=== PATIENT | female | born 1995 | race African-American/Black ===

== ENCOUNTER 2018-01-03 12:31 | Emergency (ER) | payer OTHER ==
[2018-01-03 12:46] VITALS: BMI 25.6
--- NOTE | 2018-01-03 13:37 | PDOC ---
History of Present Illness - General Chief Complaint: Lightheaded Stated Complaint: LITE HEADED, DIZZINESS Time Seen by Provider: 01/03/18 12:45 - History of Present Illness Initial Comments: 01/03/18 13:34 22 yo F is here 20 weeks with the chief complaint of feeling lightheaded this morning and has a headache. She says she felt dizzy and she wanted to pass out. She also endorses a headache and says she had blurry vision. This happened to her 1 month ago in October, she did not see a doc for it. Denies room spinning. ROS: She said yesterday she had a sharp substernal chest pain which lasted for an hour then went away. It happened while she was watching TV. Past History - Past Medical History Allergies/Adverse Reactions: Allergies Allergy/AdvReac Type Severity Reaction Status Date / Time No Known Allergies Allergy Verified 04/24/17 20:39 Home Medications: Ambulatory Orders NK [No Known Home Medication] 04/24/17 Anemia: Yes Asthma: Yes COPD: No - Reproductive History Therapeutic (s) & number: No - Suicide/Smoking/Psychosocial Hx Smoking History: Unknown if ever smoked Review of Systems - Review of Systems Comments:: 01/03/18 14:38 CONSTITUTIONAL: Absent: fever, chills, diaphoresis, generalized weakness, malaise, loss of appetite HEENT: Absent: rhinorrhea, nasal congestion, throat pain, throat swelling, difficulty swallowing, mouth swelling, ear pain, eye pain, visual Changes CARDIOVASCULAR: Positive: Chest pain yesterday for 1 hour, lightheadedness Absent: syncope, palpitations, irregular heart rate, peripheral edema RESPIRATORY: Absent: cough, shortness of breath, dyspnea with exertion, orthopnea, wheezing, stridor, hemoptysis GASTROINTESTINAL: Absent: abdominal pain, abdominal distension, nausea, vomiting, diarrhea, constipation, melena, hematochezia GENITOURINARY: Absent: dysuria, frequency, urgency, hesitancy, hematuria, flank pain, genital pain MUSCULOSKELETAL: Absent: myalgia, arthralgia, joint swelling SKIN: Absent: rash, itching, pallor HEMATOLOGIC/IMMUNOLOGIC: Absent: easy bleeding, easy bruising, lymphadenopathy, frequent infections ENDOCRINE: Absent: unexplained weight gain, unexplained weight loss, heat intolerance, cold intolerance NEUROLOGIC: Positive: headache, blurry vision, dizziness Absent: focal weakness or paresthesias, unsteady gait, seizure, mental status changes, bladder or bowel incontinence PSYCHIATRIC: Absent: anxiety, depression, suicidal or homicidal ideation, hallucinations. *Physical Exam - Vital Signs Last Vital Signs Temp Pulse Resp BP Pulse Ox 97.3 F L 78 18 105/68 100 01/03/18 12:43 01/03/18 12:43 01/03/18 12:43 01/03/18 12:43 01/03/18 12:43 - Physical Exam Comments: 01/03/18 14:39 GENERAL: Well developed, well nourished. Awake and alert. No acute distress. HEENT: Normocephalic, atraumatic. PERRLA, EOMI. No conjunctival pallor. Sclera are non- icteric. Moist mucous membranes. Oropharynx is clear. NECK: Supple. Full ROM. No JVD. Carotid pulses 2+ and symmetric, without bruits. No thyromegaly. No lymphadenopathy. CARDIOVASCULAR: Regular rate and rhythm. No murmurs, rubs, or gallops. Distal pulses are 2+ and symmetric. PULMONARY: No evidence of respiratory distress. Lungs clear to auscultation bilaterally. No wheezing, rales or rhonchi. ABDOMINAL: Soft. Non-tender. Non-distended. No rebound or guarding. No organomegaly. MUSCULOSKELETAL Normal range of motion at all joints. No bony deformities or tenderness. No CVA tenderness. EXTREMITIES: No cyanosis. No clubbing. No edema. No calf tenderness. SKIN: Warm and dry. Normal capillary refill. No rashes. No jaundice. NEUROLOGICAL: Alert, awake, appropriate. Cranial nerves 2-12 intact. No deficits to light touch and temperature in face, upper extremities and lower extremities. No motor deficits in the in face, upper extremities and lower extremities. Normoreflexic in the upper and lower extremities. Normal speech. Toes are down-going bilaterally. Gait is normal without ataxia. PSYCHIATRIC: Cooperative. Good eye contact. Appropriate mood and affect. Heart Score/ECG Review - Electrocardiogram EKG: Normal - Age Age: </= 45 - Risk Factors Based on the list above the patient has:: No risk factors known - Troponin Troponin: </= normal limit - ECG Intrepretation Rhythm: Regular Rhythm - [place]: Normal - P and CT Delta Wave(s) Present: No WPW: No - QRS Poor R Wave Progression: No Q Wave Present: No - ST and T Early Repolarization: No Non Specific ST-T Wave changes: No Flattened T Waves: No Prolonged Q-T Interval: No - ECG Impressions Normal ECG: Yes Non-specific ST Elevation: No Ischemic Changes: No Bradycardia: No Torsades kaley Pointes: No WPW: No ED Treatment Course - LABORATORY CBC & Chemistry Diagram: 01/03/18 14:20 01/03/18 14:20 Medical Decision Making - Medical Decision Making 01/03/18 14:40 22 yo F 20 weeks here with lightheadedness, headache, and blurry vision. Top on the differential is a migraine We will get an ekg to ass for any rhythym disturbances or abnormalities. Also going to get bloodwork to check Hb and electrolytes. Plan: snellen visual acuity and orthostatic test. Snellen: 20:15OD, 20:20 OS after a liter of normal saline the patient no longer has a headache and no longer has blurry vision. She is eating wings and fries and feels great. DCing her w Neuro FU. 01/03/18 14:52 01/03/18 15:39 *DC/Admit/Observation/Transfer Diagnosis at time of Disposition: Headache - Discharge Dispostion Condition at time of disposition: Improved Decision to Admit order: No - Referrals Referrals: Giovani Ruffin MD [Staff Physician] - - Patient Instructions Printed Discharge Instructions: DI for Headache Additional Instructions: Please call the neurologist we are referring you to and schedule an appointment with him in the next 5 days. Come back to the ER if your symptoms worsen, you develop fever or anything concerning. Take Tylenol if you get a headache and need pain relief. - Post Discharge Activity
[2018-01-03] MEDS ORDERED: SODIUM CHLORIDE 1,000 ML IV STA (13:59)
[2018-01-03 14:25] LABS: BASO % 0.6 % (0-2.0); EOS % 2.4 % (0-4.5); HEMATOCRIT 32.7 % (32.4-45.2); HEMOGLOBIN 10.7 GM/dL (10.7-15.3); LYMPH % 18.6 % (8-40); MCH 25.5 pg (25.7-33.7); MCHC 32.8 g/dl (32.0-36.0); MEAN CELL VOLUME 77.7 fl (80-96); MEAN PLT VOLUME 8.5 fl (7.5-11.1); MONO % 5.2 % (3.8-10.2); NEUT % 73.2 % (42.8-82.8); PLATELET COUNT 272 K/MM3 (134-434); RDW 14.6 % (11.6-15.6); WHITE BLOOD COUNT 7.9 K/mm3 (4.0-10.0)
[2018-01-03 14:51] LABS: ALBUMIN 3.3 g/dl (3.4-5.0); ANION GAP 5 (8-16); BILIRUBIN,TOTAL 0.3 mg/dL (0.2-1.0); BLOOD UREA NITROGEN 10 mg/dL (7-18); CALCIUM 9.2 mg/dL (8.5-10.1); CHLORIDE 103 mmol/L (98-107); CO2 28 mmol/L (21-32); CREATININE 0.8 mg/dL (0.55-1.02); GLUCOSE,RANDOM 83 mg/dL (74-106); POTASSIUM 4.1 mmol/L (3.5-5.1); SGOT/AST 31 U/L (15-37); SGPT/ALT 33 U/L (12-78); SODIUM 136 mmol/L (136-145); TOT PROT 7.5 g/dl (6.4-8.2)
[2018-01-03 14:52] LABS: ALK PHOS 84 U/L (45-117)
--- NOTE | 2018-01-03 15:38 | PDOC ---
Attending Attestation - Medical Decision Making 01/03/18 16:55 Documentation prepared by Kallie Valles, acting as medical information specialist for Aleksander Esquivel MD. <Kallie Valles - Last Filed: 01/03/18 16:55> - Resident Resident Name: Shaun Rojas - ED Attending Attestation I have performed the following: I have examined & evaluated the patient, The case was reviewed & discussed with the resident, I agree w/resident's findings & plan, Exceptions are as noted - HPI HPI: 01/03/18 15:38 The patient is a 22 year old female, with a significant past medical history of anemia, asthma, chronic headaches, who presents 20 weeks () to the emergency department complaining of lightheadedness since this morning. The patient states that she began experiencing non-room spinning dizziness, gradual onset R sided headache, and blurry vision while walking outside this morning. Symptoms lasted for a few mins, and pt was concerned she would pass out and presented to the ED for further evaluation. She notes that before the event she had a soda and not much water. She notes this headache is similar to her previous headaches which are often associated with blurry vision. The patient also reports that yesterday she experienced a sharp sternal non radation chest pain that lasted 1 hour while she was sitting down watching TV. CP resolved on its own. She currently endorses mild b/l back pain for 1 month. Other than the back pain, pt states that all other symptoms at this time have resolved The patient visited her [facility] yesterday; US of was reported normal Denies pelvic pain or vaginal bleeding Denies chest pain, shortness of breath. Denies fevers, chills, nausea, vomiting, diarrhea, and constipation. Denies dysuria, frequency, urgency, and hematuria. Allergies: NKA Past surgical history: none reported Social history: No reported cigarette, alcohol, or drug use. PCP: Dr. Sandy Zhang - Physicial Exam PE: 01/03/18 15:43 GENERAL: Awake, alert, and fully oriented, in no acute distress HEAD: No signs of trauma EYES: PERRLA, EOMI, sclera anicteric, conjunctiva clear. 20/20 OU, VF are full ENT: Auricles normal inspection, hearing grossly normal, nares patent, oropharynx clear without exudates. (+)Moderately dry mucosa NECK: Normal ROM, supple, no lymphadenopathy, JVD, or masses LUNGS: Breath sounds equal, clear to auscultation bilaterally. No wheezes, and no crackles HEART: Regular rate and rhythm, normal S1 and S2, no murmurs, rubs or gallops ABDOMEN: Soft, nontender, normoactive bowel sounds. No guarding, no rebound. No masses. gravid uterus EXTREMITIES: Normal range of motion, no edema. No clubbing or cyanosis. No cords , erythema, or tenderness BACK: No midline spinal tenderness in cervical/thoracic/lumbar region. +lumbar paraspinal ttp b/l NEUROLOGICAL: Normal speech, cranial nerves intact, negative pronator drift, 5/ 5 strength in all 4 extremities, normal sensation to light touch in all 4 extremities, normal cerebellar exam, normal gait, normal reflexes and tone SKIN: Warm, Dry, normal turgor, no rashes or lesions noted." - Medical Decision Making 01/03/18 15:28 22yo F currently 20 weeks presents to the ED with lightheadness, headache, blurry vision today, and CP yesterday. On my evaluation, all sxs have resolved after IVF. Vitals wnl. PT ambulating in ED with no lightheadness. Exam , including visual acuity 20/20 OU corrected. Visual sandy full. Pt reports her headache similar to previous headaches over the last 4 years, which are often associated with blurry vision, possibly atypical migraine? Given normal exam and resolution of sxs, no need for further work up at this time. With regards to lightheadness, pt feels better, ambulating with no difficulty. Admits to not drinking any water today, only a soda. Pt's mucous membranes also appeared dry consistent with dehydration. CP was transient yesterday, likely atypical in nature, trop and EKG wnl. Pt requests DC. Pt stable for transfer to L&D for monitoring <Nassef,Yomna - Last Filed: 01/03/18 19:35> Heart Score/ECG Review #1 01/03/18 19:35 Twelve-lead EKG was performed and reviewed by me. Normal sinus rhythm, rate 70 to. Normal axis and intervals. No ST elevations <Nassef,Yomna - Last Filed: 01/03/18 19:35>
--- NOTE | 2018-01-03 16:33 | EKG ---
Test Reason : Blood Pressure : / mmHG Vent. Rate : 072 BPM Atrial Rate : 072 BPM P-R Int : 152 ms QRS Dur : 074 ms QT Int : 378 ms P-R-T Axes : 041 037 038 degrees QTc Int : 413 ms NORMAL SINUS RHYTHM ANTERIOR INFARCT , AGE UNDETERMINED ABNORMAL ECG NO PREVIOUS ECGS AVAILABLE Confirmed by BASIL TREJO, SKYLAR ([id number]) on 01/03/2018 4:32:57 PM Referred By: Confirmed By:SKYLAR GRACIA MD
[2018-01-03 18:33] VITALS: BP 112/54; PULSE 58; TEMP 97.8
== END 2018-01-03 18:38 | disposition home or self-care (01) ==
LOC: JER 12:31
PROC: 4A07X0Z Measurement of Visual Acuity, External Approach (ICD-10-PCS; principal; 2018-01-03)
PROC: 3E0337Z Introduction of Electrolytic and Water Balance Substance into Peripheral Vein, Percutaneous Approach (ICD-10-PCS; 2018-01-03)
DX: O26.892 Other specified pregnancy related conditions, second trimester (principal); R51 Headache; H53.8 Other visual disturbances; Z3A.20 20 weeks gestation of pregnancy; Z86.2 Personal history of diseases of the blood and blood-forming organs and certain disorders involving the immune mechanism; Z87.09 Personal history of other diseases of the respiratory system
CPT/HCPCS: 36415; 80053; 84484; 85025; 93005; 93010; 99282-25; J7030

== ENCOUNTER 2020-04-02 15:04 | Emergency (ER) | payer OTHER ==
[2020-04-02 15:26] VITALS: BP 126/57; PULSE 85; TEMP 98.6; BMI 15.9
--- OUTSIDE RECORDS SUMMARY | 2020-04-02 15:48 | XMS ---
:1995 Author Organization [facility] Care Team Providers Name Role Phone ED STAFF PHYSICIANMALCOM Unavailable Unavailable ED STAFF PHYSICIAN, STAFF Unavailable Unavailable ED STAFF PHYSICIAN Unavailable Unavailable Re-disclosure Warning The records that you are about to access may contain information from federally- assisted alcohol or drug abuse programs. If such information is present, then the following federally mandated warning applies: This information has been disclosed to you from records protected by federal confidentiality rules (42 CFR part 2). The federal rules prohibit you from making any further disclosure of this information unless further disclosure is expressly permitted by the written consent of the person to whom it pertains or as otherwise permitted by 42 CFR part 2. A general authorization for the release of medical or other information is NOT sufficient for this purpose. The Federal rules restrict any use of the information to criminally investigate or prosecute any alcohol or drug abuse patient.The records that you are about to access may contain highly sensitive health information, the redisclosure of which is protected by Article 27-F of the [facility] Public Health law. If you continue you may haveaccess to information: Regarding HIV / AIDS; Provided by facilities licensed or operated by the [facility] Office of Mental Health; or Provided by the [facility] Office for People With Developmental Disabilities. If such information is present, then the following [facility] mandated warning applies: This information has been disclosed to you from confidential records which are protected by state law. State law prohibits you from making any further disclosure of this information without the specific written consent of the person to whom it pertains, or as otherwise permitted by law. Any unauthorized further disclosure in violation of state law may result in a fine or snf sentence or both. A general authorization for the release of medical or other information is NOT sufficient authorization for further disclosure. Family History Family Member Family Member Family Member Date of Description Data Source(s) Name Gender Status Status Unknown Male Diagnosis 03/21/2016 NEXTGEN ([facility] 12:00:00 AM [facility] EDT Center) Encounters Encounter Providers Location Date Indications Data Source(s ) Emergency Attender: MALCOM ED H 12/30/2019 eLticia Colin STAFF 02:00:00 PM EDT Medical C enter PHYSICIANAttender: - 12/30/2019 ED STAFF 10:02:00 PM EDT PHYSICIANAttender: STAFF ED STAFF PHYSICIANAdmitter: MALCOM ED STAFF PHYSICIAN Patient discharged. Emergency Attender: STAFF ED STAFF H 07/08/2019 08:10:00 PM [facility] PHYSICIAN EST - 07/09/2019 01:45:00 Center AM EST Patient discharged. Emergency H 02/11/2019 05:19:00 PM EDT - 019 [facility] 06:38:00 PM EDT Patient discharged. Insurance Providers Payer name Policy type Policy ID Covered Covered constitution party's Policy P marianne / Coverage constitution party ID relationship to Prasad Inf ormation type prasad AFFINITY [id number] SP [id number] AFFINITY O [id number] 01 [id number] HEALTH PLAN AFFINITY O [id number] 01 [id number] HEALTH PLAN Problems, Conditions, and Diagnoses Code Display Name Description Problem Type Effective Data Sour ce(s) Dates J45.909 Unspecified UNSPECIFIED Diagnosis 12/30/2019 [facility] bucio asthma, ASTHMA, 02:00:00 PM Medical Cente r uncomplicated UNCOMPLICATED EDT N39.0 Urinary tract URINARY TRACT Diagnosis 12/30/2019 [facility] mancera infection, site INFECTION, SITE 02:00:00 PM Med ical Center not specified NOT SPECIFIED EDT R50.9 Fever, unspecified FEVER, UNSPECIFIED Diagnosis 0 [facility] 02:00:00 PM Medical Cente r EDT Z3A.00 Weeks of gestation WEEKS OF GESTATION Diagnosis 9 [facility] of not OF NOT 05:19:00 PM edical Center specified SPECIFIED EDT Z34.90 Encounter for ENCNTR FOR SUPRVSN Diagnosis 02/11/2019 To Colin supervision of OF NORMAL 05:19:00 PM Medical C enter normal , , UNSP, EDT unspecified, UNSP TRIMESTER unspecified trimester Z32.00 Encounter for ENCOUNTER FOR Diagnosis 02/11/2019 [facility] test, TEST, 05:19:00 PM Med ical Center result unknown RESULT UNKNOWN EDT Results ID Date Data Source Liver 12/30/2019 04:35:00 PM EDT [facility] Profile.[id number] Name Value Range Interpretation Description Data Sup porting Code Source(s) Document(s ) Alanine 7-30 <content [facility] aminotransferase styleCode="Bold"> Christos hs [Enzymatic Alanine Medical activity/volume] Aminotransferase Center in Serum or Plasma (ALT) </content>17 IU/L<content styleCode="Italic s"> (7-30 IU/L)</content> Alkaline 38-126 <content [facility] phosphatase styleCode="Bold"> [place] [Enzymatic Alkaline Medical activity/volume] Phosphatase (ALP) Cente r in Serum or Plasma </content>119 IU/L<content styleCode="Italic s"> (38-126 IU/L)</content> Aspartate 14-36 <content [facility] aminotransferase styleCode="Bold"> Christos hs [Enzymatic Aspartate Medical activity/volume] Aminotransferase Center in Serum or Plasma (AST) </content>23 IU/L<content styleCode="Italic s"> (14-36 IU/L)</content> Bilirubin.total 0.2-1.3 Above high <content [facility] [Mass/volume] in normal styleCode="Bold"> Christos hs Serum or Plasma Bilirubin Total Medical </content>1.4 Center MG/DL H<content styleCode="Italic s"> (0.2-1.3 MG/DL)</content> Albumin 3.5-5.0 <content [facility] [Mass/volume] in styleCode="Bold"> Christos hs Serum or Plasma Albumin Medical </content>4.5 Center G/DL<content styleCode="Italic s"> (3.5-5.0 G/DL)</content> UNK 0.0-0.3 <content [facility] styleCode="Bold"> [place] Bilirubin, Direct Medical </content>< 0.2 Center MG/DL<content styleCode="Italic s"> (0.0-0.3 MG/DL)</content> ID Date Data Source HematologyRou.[id number] 12/30/2019 04:35:00 PM EDT To nt [facility] 0400 Name Value Range Interpretation Description Data Sup porting Code Source(s) Document(s ) Leukocytes 4.4-11.0 Above high <content [facility] [#/volume] in normal styleCode="Bold [place] Blood by ">White Blood Medical Automated count Cell Count Center </content>15.25 KCUMM H<content styleCode="Ital ics"> (4.4-11.0 KCUMM)</content > Erythrocytes 4.0-5.1 <content [facility] [#/volume] in styleCode="Bold [place] Blood by ">Red Blood Medical Automated count Cell Count Center </content>4.84 MCUMM<content styleCode="Ital ics"> (4.0-5.1 MCUMM)</content > Hematocrit 36.0-46. Below low normal <content Saint [Volume 0 styleCode="Bold [place] Fraction] of ">Hematocrit Medical Blood by </content>35.6 Center Automated count % L<content styleCode="Ital ics"> (36.0-46.0 %)</content> Hemoglobin 12.3-16. Below low normal <content [facility] [Mass/volume] in 0 styleCode="Bold [place] Blood ">Hemoglobin Medical </content>10.6 Center G/DL L<content styleCode="Ital ics"> (12.3-16.0 G/DL)</content> Erythrocyte mean 26.0-34. Below low normal <content [facility] corpuscular 0 styleCode="Bold [place] hemoglobin ">Mean Medical [Entitic mass] Corposcular Center by Automated Hemoglobin count </content>21.9 PG L<content styleCode="Ital ics"> (26.0-34.0 PG)</content> Erythrocyte mean 80.0-100 <content [facility] corpuscular .0 styleCode="Bold [place] volume [Entitic ">Mean Medical volume] by Corpuscular Center Automated count Volume </content>73.6 FL<content styleCode="Ital ics"> (80.0-100.0 FL)</content> Erythrocyte mean 32.0-37. Below low normal <content [facility] corpuscular 0 styleCode="Bold [place] hemoglobin ">Mean Corpus. Medical concentration Hgb Center [Mass/volume] by Concentration Automated count (MCHC) </content>29.8 G/DL L<content styleCode="Ital ics"> (32.0-37.0 G/DL)</content> Erythrocyte 11.5-14. Above high <content [facility] distribution 5 normal styleCode="Bold [place] width [Ratio] by ">Red Cell Medical Automated count Distribution Center Width </content>19.6 % H<content styleCode="Ital ics"> (11.5-14.5 %)</content> Platelets 130-400 <content Saint [#/volume] in styleCode="Bold [place] Blood by ">Platelet Medical Automated count Count Center </content>329 KCUMM<content styleCode="Ital ics"> (130-400 KCUMM)</content > UNK 0 <content Saint styleCode="Bold [place] ">Nucleated Red Medical Blood Cell Center </content>0.0 /100<content styleCode="Ital ics"> (0 /100)</content> UNK 0.0 <content Saint styleCode="Bold [place] ">Nucleated Red Medical Blood Cell Center Count </content>0.00 KCUMM<content styleCode="Ital ics"> (0.0 KCUMM)</content > Platelet mean 8.0-11.0 <content [facility] volume [Entitic styleCode="Bold [place] volume] in Blood ">Mean Platelet Medical by Automated Volume Center count </content>10.4 FL<content styleCode="Ital ics"> (8.0-11.0 FL)</content> ID Date Data Source GFR(Creatinine).[id number] 12/30/2019 04:35:00 PM EDT [facility] 0-0400 Name Value Range Interpretation Code Description Data Martina rce(s) Supporting Document(s ) UNK > 60 <content [facility] styleCode="Bold"> Medical Cent er EGFR </content>79 GFR<content styleCode="Italic s"> (> 60 GFR)</content> ID Date Data Source CHMROUTINECCDA.[id number] 12/30/2019 04:35:00 PM EDT [facility] -0400 Name Value Range Interpretation Description Data Sup porting Code Source(s) Document(s ) Lipase 23-300 <content [facility] [Enzymatic styleCode="Bold Medical activity/vo ">Lipase Center lume] in </content>26 Serum or IU/L<content Plasma styleCode="Ital ics"> (23-300 IU/L)</content> UNK 30-110 <content [facility] styleCode="Bold Medical ">Amylase Center </content>45 IU/L<content styleCode="Ital ics"> (30-110 IU/L)</content> ID Date Data Source [facility].[id number] 12/30/2019 04:35:00 PM EDT [facility] Name Value Range Interpretation Description Data Sup porting Code Source(s) Document(s ) Sodium 137-145 Below low <content [facility] [Moles/volume] in normal styleCode="Bold"> Meet phs Serum or Plasma Sodium Medical </content>136 Center MEQ/L L<content styleCode="Italic s"> (137-145 MEQ/L)</content> Carbon dioxide, 22-30 <content [facility] total styleCode="Bold"> [place] [Moles/volume] in Carbon Dioxide Medical Serum or Plasma </content>24 Center MEQ/L<content styleCode="Italic s"> (22-30 MEQ/L)</content> Potassium 3.5-5.3 <content [facility] [Moles/volume] in styleCode="Bold"> Meet phs Serum or Plasma Potassium Medical </content>3.8 Center MEQ/L<content styleCode="Italic s"> (3.5-5.3 MEQ/L)</content> Chloride 98-107 <content [facility] [Moles/volume] in styleCode="Bold"> Meet phs Serum or Plasma Chloride Medical </content>99 Center MEQ/L<content styleCode="Italic s"> (98-107 MEQ/L)</content> UNK 7-17 <content [facility] styleCode="Bold"> [place] BUN </content>12 Medical MG/DL<content Center styleCode="Italic s"> (7-17 MG/DL)</content> Glucose 74-106 Above high <content [facility] [Mass/volume] in normal styleCode="Bold"> Christos hs Serum or Plasma Glucose Medical </content>109 Center MG/DL H<content styleCode="Italic s"> (74-106 MG/DL)</content> Creatinine 0.5-1.3 <content [facility] [Mass/volume] in styleCode="Bold"> Christos hs Serum or Plasma Creatinine Medical </content>1.1 Center MG/DL<content styleCode="Italic s"> (0.5-1.3 MG/DL)</content> Calcium 8.4-10. <content [facility] [Mass/volume] in 2 styleCode="Bold"> Christos hs Serum or Plasma Calcium Medical </content>9.2 Center MG/DL<content styleCode="Italic s"> (8.4-10.2 MG/DL)</content> UNK > 60 <content [facility] styleCode="Bold"> [place] EGFR </content>79 Medical GFR<content Center styleCode="Italic s"> (> 60 GFR)</content> Aspartate 14-36 <content [facility] aminotransferase styleCode="Bold"> Christos hs [Enzymatic Aspartate Medical activity/volume] Aminotransferase Center in Serum or Plasma (AST) </content>23 IU/L<content styleCode="Italic s"> (14-36 IU/L)</content> Alanine 7-30 <content [facility] aminotransferase styleCode="Bold"> Christos hs [Enzymatic Alanine Medical activity/volume] Aminotransferase Center in Serum or Plasma (ALT) </content>17 IU/L<content styleCode="Italic s"> (7-30 IU/L)</content> Albumin 3.5-5.0 <content [facility] [Mass/volume] in styleCode="Bold"> Christos hs Serum or Plasma Albumin Medical </content>4.5 Center G/DL<content styleCode="Italic s"> (3.5-5.0 G/DL)</content> Alkaline 38-126 <content [facility] phosphatase styleCode="Bold"> [place] [Enzymatic Alkaline Medical activity/volume] Phosphatase (ALP) Cente r in Serum or Plasma </content>119 IU/L<content styleCode="Italic s"> (38-126 IU/L)</content> Bilirubin.total 0.2-1.3 Above high <content [facility] [Mass/volume] in normal styleCode="Bold"> Christos hs Serum or Plasma Bilirubin Total Medical </content>1.4 Center MG/DL H<content styleCode="Italic s"> (0.2-1.3 MG/DL)</content> ID Date Data Source Urinalysis.[id number] 12/30/2019 02:30:00 PM EDT To [facility] 0 Name Value Range Interpretation Description Data Sup porting Code Source(s) Document(s ) Color of Urine YELLOW <content [facility] styleCode="Geni [place] d">Color, Medical Urine Center </content>YELL OW <content styleCode="Sommer lics"> (YELLOW )</content> UNK CLEAR <content [facility] styleCode="Geni [place] d">Urine Medical Clarity Center </content>CLOU DY <content styleCode="Sommer lics"> (CLEAR )</content> UNK NEGATIVE <content Saint styleCode="Geni [place] d">Urine Medical Bilirubin Center </content>SMAL L <content styleCode="Sommer lics"> (NEGATIVE )</content> Ketones NEGATIVE <content [facility] [Mass/volume] styleCode="Geni [place] in Urine by d">Urine Medical Test strip Ketone Center </content>15 MG/DL<content styleCode="Sommer lics"> (NEGATIVE MG/DL)</conten t> Glucose NEGATIVE <content [facility] [Mass/volume] styleCode="Geni [place] in Urine by d">Urine Medical Test strip Glucose Center </content>NEGA TIVE MG/DL<content styleCode="Sommer lics"> (NEGATIVE MG/DL)</conten t> Hemoglobin NEGATIVE <content Saint [Presence] in styleCode="Geni Toneys Urine by Test d">Urine Blood Medical strip </content>MODE Center RATE <content styleCode="Sommer lics"> (NEGATIVE )</content> Protein NEGATIVE <content [facility] [Mass/volume] styleCode="Geni [place] in Urine by d">Urine Medical Test strip Protein Center </content>100 MG/DL<content styleCode="Sommer lics"> (NEGATIVE MG/DL)</conten t> pH of Urine by 4.5-8.0 <content [facility] Test strip styleCode="Geni [place] d">Urine pH Medical </content>6.0 Center <content styleCode="Sommer lics"> (4.5-8.0 )</content> Specific 1.015-1.02 <content [facility] gravity of 5 styleCode="Geni Colin Urine by Test d">Urine Medical strip Specific Center [place] </content>1.02 5 <content styleCode="Sommer lics"> (1.015-1.025 )</content> Leukocyte NEGATIVE <content [facility] esterase styleCode="Geni Toneys [Presence] in d">Urine Medical Urine by Test Leukocyte Center strip </content>MODE RATE <content styleCode="Sommer lics"> (NEGATIVE )</content> Urobilinogen 0.2-1.0 Above high <content Saint [Units/volume] normal styleCode="Geni Toneys in Urine by d">Urine Medical Test strip Urobilinogen Center </content>2.0 MG/DL H<content styleCode="Sommer lics"> (0.2-1.0 MG/DL)</conten t> Nitrite NEGATIVE <content Saint [Presence] in styleCode="Geni Toneys Urine by Test d">Urine Medical strip Nitrite Center </content>POSI TIVE <content styleCode="Sommer lics"> (NEGATIVE )</content> UNK 0-3 <content Saint styleCode="Geni Colin d">Urine Red Medical Blood Cell Center </content>5 - 10 HPF<content styleCode="Sommer lics"> (0-3 HPF)</content> UNK NEGATIVE <content Saint styleCode="Geni Toneys d">Urine Medical Bacteria Center </content>MODE RATE HPF<content styleCode="Sommer lics"> (NEGATIVE HPF)</content> UNK NONE SEEN <content Saint styleCode="Geni Toneys d">Epithelial Medical Cell Center </content>2-5 HPF<content styleCode="Sommer lics"> (NONE SEEN HPF)</content> UNK 0-3 <content styleCode="Geni Colin d">Urine White Medical Blood Cell Center </content>>200 HPF<content styleCode="Sommer lics"> (0-3 HPF)</content> ID Date Data Source Microbiology.[id number] 12/30/2019 02:30:00 PM EDT [facility] 400 Name Value Range Interpretation Code Description Data Martina rce(s) Supporting Document(s ) UNK <item><content [facility] styleCode="Bold"> Medical Cent er Culture Report </content>
<t able><tbody><tr>< td>Specimen Number:</td><td>[id number]</td></tr ><tr><td>Sample Collection Date/Time: </td><td> 0 2:30 PM</td></tr><tr>< td>Specimen Source:</td><td>U RINE</td></tr><tr ><td>Urine Culture:</td><td> Collection Plate Date: 12/30/2019 14:35 </td></tr><tr><td >Culture Status:</td><td>P reliminary </td></tr><tr><td >Culture Report:</td><td>C ulture in progress </td></tr><tr><td >[place] Count Urine:</td><td>>1 00,000 CFU/ML </td></tr><tr><td >Preliminary 1:</td><td>[facility] [employer] </td></tr></tbody ></table></item> UNK <item><content [facility] styleCode="Bold"> Medical [facility] er Culture Status </content>
<t able><tbody><tr>< td>Specimen Number:</td><td>[id number]</td></tr ><tr><td>Sample Collection Date/Time: </td><td> 0 2:30 PM</td></tr><tr>< td>Specimen Source:</td><td>U RINE</td></tr><tr ><td>[place] Count Urine:</td><td>>1 00,000 CFU/ML </td></tr><tr><td >Preliminary 1:</td><td>[employer] </td></tr><tr><td >Culture Status:</td><td>P reliminary </td></tr><tr><td >Culture Report:</td><td>C ulture in progress </td></tr><tr><td >Urine Culture:</td><td> Collection Plate Date: 12/30/2019 14:35 </td></tr></tbody ></table></item> ID Date Data Source [id number] 11/01/2019 04:12:00 PM EDT [facility] Name Value Range Interpretation Code Description Data Martina rce(s) Supporting Document(s ) SARS-CoV-2 [facility] Ql KELLY+probe This lab was ordered by [facility] and reported by [facility]. ID Date Data Source Urinalysis.[id number] 02/11/2019 05:45:00 PM EDT To [facility] 0 Name Value Range Interpretation Description Data Sup porting Code Source(s) Document(s ) UNK CLEAR <content Saint styleCode="Geni [place] d">Urine Medical Clarity Center </content>Sl CLOUDY <content styleCode="Sommer lics"> (CLEAR )</content> Color of Urine YELLOW <content Saint styleCode="[facility] d">Color, Medical Urine Center </content>YELL OW <content styleCode="Sommer lics"> (YELLOW )</content> UNK NEGATIVE <content Saint styleCode="Geni [place] d">Urine Medical Bilirubin Center </content>NEGA TIVE <content styleCode="Sommer lics"> (NEGATIVE )</content> Glucose NEGATIVE <content Saint [Mass/volume] styleCode="Geni [place] in Urine by d">Urine Medical Test strip Glucose Center </content>NEGA TIVE MG/DL<content styleCode="Sommer lics"> (NEGATIVE MG/DL)</conten t> Ketones NEGATIVE <content [facility] [Mass/volume] styleCode="Geni [place] in Urine by d">Urine Medical Test strip Ketone Center </content>NEGA TIVE MG/DL<content styleCode="Sommer lics"> (NEGATIVE MG/DL)</conten t> Protein NEGATIVE <content [facility] [Mass/volume] styleCode="Geni [place] in Urine by d">Urine Medical Test strip Protein Center </content>NEGA TIVE MG/DL<content styleCode="Sommer lics"> (NEGATIVE MG/DL)</conten t> pH of Urine by 4.5-8.0 <content Saint Test strip styleCode="Egni [place] d">Urine pH Medical </content>6.0 Center <content styleCode="Sommer lics"> (4.5-8.0 )</content> Hemoglobin NEGATIVE <content Saint [Presence] in styleCode="Geni [place] Urine by Test d">Urine Blood Medical strip </content>NEGA Center TIVE <content styleCode="Sommer lics"> (NEGATIVE )</content> Specific 1.015-1.02 <content [facility] gravity of 5 styleCode="Geni Colin Urine by Test d">Urine Medical strip Specific Center [place] </content>1.02 0 <content styleCode="Sommer lics"> (1.015-1.025 )</content> Leukocyte NEGATIVE <content [facility] esterase styleCode="Geni Toneys [Presence] in d">Urine Medical Urine by Test Leukocyte Center strip </content>NEGA TIVE <content styleCode="Sommer lics"> (NEGATIVE )</content> Urobilinogen 0.2-1.0 <content Saint [Units/volume] styleCode="Geni Colin in Urine by d">Urine Medical Test strip Urobilinogen Center </content>0.2 MG/DL<content styleCode="Sommer lics"> (0.2-1.0 MG/DL)</conten t> Nitrite NEGATIVE <content Saint [Presence] in styleCode="Geni Colin Urine by Test d">Urine Medical strip Nitrite Center </content>NEGA TIVE <content styleCode="Sommer lics"> (NEGATIVE )</content> UNK NEGATIVE <content Saint styleCode="Geni Toneys d">Urine Medical Bacteria Center </content>MODE RATE HPF<content styleCode="Sommer lics"> (NEGATIVE HPF)</content> UNK 0-3 <content Saint styleCode="Geni [place] d">Urine White Medical Blood Cell Center </content>0-3 HPF<content styleCode="Sommer lics"> (0-3 HPF)</content> UNK 0-3 <content Saint styleCode="Geni [place] d">Urine Red Medical Blood Cell Center </content>0-3 HPF<content styleCode="Sommer lics"> (0-3 HPF)</content> UNK <content Saint styleCode="Geni [place] d">Epithelial Medical Cell Center </content>10 - 20 LPF (Reference Range: not available)<br/ > Procedure Social History Code Duration Value Status Description Data Source(s ) Smoking 12/30/2019 Denies Ever completed Denies Ever Smoked [facility] [place] 03:52:00 PM EDT Smoked Medical C enter Smoking 12/30/2019 Denies Ever completed Denies Ever Smoked [facility] [place] 02:20:00 PM EDT Smoked Medical C enter Smoking 12/30/2019 Denies Ever completed Denies Ever Smoked [facility] [place] 02:08:00 PM EDT Smoked Medical C enter Smoking 02/11/2019 Denies Ever completed Denies Ever Smoked [facility] [place] 05:49:00 PM EDT Smoked Medical C enter Smoking 02/11/2019 Denies Ever completed Denies Ever Smoked [facility] [place] 05:27:00 PM EDT Smoked Medical C enter Smoking 02/11/2019 Denies Ever completed Denies Ever Smoked [facility] [place] 05:20:00 PM EDT Smoked Medical C enter Vital Signs ID Date Data Source UNK Name Value Range Interpretation Code Description Data Source(s) Body temperature 37.166309 37.806140 [facility] Respiratory rate 8 /min 8 /min [facility] Heart rate 119 /min 119 /min [facility] Diastolic blood 74 mm[Hg] 74 mm[Hg] [facility] Systolic blood 125 mm[Hg] 125 mm[Hg] [facility] Body temperature 38.050338 38.832373 [facility] Respiratory rate 18 /min 18 /min [facility] Oxygen saturation 99 % 99 % [facility] by Pulse oximetry Heart rate 119 /min 119 /min [facility] Diastolic blood 70 mm[Hg] 70 mm[Hg] [facility] Systolic blood 120 mm[Hg] 120 mm[Hg] [facility] Body weight 46.493450 kg 46.034648 kg [facility] Body temperature 36.831958 36.217833 [facility] Respiratory rate 17 /min 17 /min [facility] Oxygen saturation 100 % 100 % [facility] J [facility] in Arterial blood [facility] by Pulse oximetry Heart rate 83 /min 83 /min [facility] Body height 160.791500 160.353966 cm [facility] cm Medical Center Diastolic blood 77 mm[Hg] 77 mm[Hg] [facility] pressure Medical Center Systolic blood 124 mm[Hg] 124 mm[Hg] [facility] pressure Medical Center Body mass index 18.0 kg/m2 18.0 kg/m2 [facility] (BMI) [Ratio] Medical [facility] ter
--- NOTE | 2020-04-02 15:51 | PDOC ---
History of Present Illness - General Chief Complaint: Pain Stated Complaint: Pain Time Seen by Provider: 04/02/20 15:26 History Source: Patient Exam Limitations: Clinical Condition - History of Present Illness Initial Comments: 04/02/20 15:45 Patient with a history of asthma presented with complaint of 3-day history of chest wall pain to the right side of the chest and over the right clavicle upon wake 3 days ago. Patient reported increased pain to right side of chest with deep breathing and intermittent cough. Denies any trauma or injury. Denies shortness of breath, palpitation, numbness or tingling sensation, nausea, vomiting, dizziness, fever or chills. Denies any sick contact or recent travel. Patient has not taken anything for the pain. Reported increased pain when she pressed on the right side of her chest wall. Denies any other symptoms Is this a multiple visit Asthma Patient?: No Timing/Duration: other (3 days) Past History - Medical History Allergies/Adverse Reactions: Allergies Allergy/AdvReac Type Severity Reaction Status Date / Time No Known Allergies Allergy Verified 04/02/20 15:25 Home Medications: Ambulatory Orders Naproxen 500 mg PO BID PRN #20 tablet 04/02/20 Anemia: Yes Asthma: Yes COPD: No - Reproductive History Is Patient Now?: No Therapeutic (s) & number: No - Psycho-Social/Smoking History Smoking History: Never smoked Review of Systems - Review of Systems Able to Perform ROS?: Yes Is the patient limited [place] proficient: No Constitutional: No: Chills, Fever, Malaise HEENTM: No: Symptoms Reported, See HPI, Eye Pain, Blurred Vision, Tearing, Recent change in vision, Double Vision, Cataracts, Ear Pain, Ocular Prothesis, Ear Discharge, Nose Pain, Nose Congestion, Tinnitus, Nose Bleeding, Hearing Loss, Throat Pain, Throat Swelling, Mouth Pain, Dental Problems, Difficulty Swallowing, Mouth Swelling, Other Respiratory: No: Symptoms reported, See HPI, Cough, Orthopnea, Shortness of Breath, SOB with Exertion, SOB at Rest, Stridor, Wheezing, Productive cough, Hemoptysis, Other Cardiac (ROS): Yes: Symptoms Reported, See HPI, Chest Pain (right side chest pain). No: Edema, Irregular Heart Rate, Lightheadedness, Palpitations, Syncope, Chest Tightness, Other ABD/GI: No: Symptoms Reported, See HPI, Constipated, Nausea, Vomiting, Abdominal cramping : No: Symptoms Reported Musculoskeletal: Yes: Symptoms Reported, See HPI, Muscle Pain (right chest wall pain) Integumentary: No: Symptoms Reported Neurological: No: Symptoms reported, Headache, Numbness, Paresthesia, Tingling, Weakness, Dizziness All Other Systems: Reviewed and Negative *Physical Exam - Vital Signs Last Vital Signs Temp Pulse Resp BP Pulse Ox 98.6 F 85 18 126/57 L 100 04/02/20 15:22 04/02/20 15:22 04/02/20 15:22 04/02/20 15:22 04/02/20 15:22 - Physical Exam 04/02/20 15:49 GENERAL: Well developed, well nourished. Awake and alert. No acute distress. HEENT: Normocephalic, atraumatic. PERRLA, EOMI. No conjunctival pallor. Sclera are non-icteric. Moist mucous membranes. Oropharynx is clear. NECK: Supple. Full ROM. CARDIOVASCULAR: mild reproducible tenderness to left chest wall over second and third ribs and right clavicle.Regular rate and rhythm. No murmurs, rubs, or gallops. Distal pulses are 2+ and symmetric. PULMONARY: No evidence of respiratory distress. Lungs clear to auscultation bilaterally. No wheezing, rales or rhonchi. ABDOMINAL: Soft. Non-tender. Non-distended. No rebound or guarding. No organomegaly. Normoactive bowel sounds. MUSCULOSKELETAL Normal range of motion at all joints. mild reproducible tenderness to left chest wall over second and third ribs and right clavicle. SKIN: Warm and dry. Normal capillary refill. No rashes. No jaundice. No cyanosis NEUROLOGICAL: Alert, awake, appropriate. Gait is normal without ataxia. PSYCHIATRIC: Cooperative. Good eye contact. Appropriate mood General Appearance: Yes: Nourished, Appropriately Dressed. No: Apparent Distress ED Treatment Course - RADIOLOGY Radiology Studies Ordered: Category Date Time Status CHEST PA & LAT [RAD] Stat Radiology 04/02/20 15:38 Ordered Medical Decision Making - Medical Decision Making 04/02/20 15:46 Patient with a history of asthma presented with complaint of 3-day history of chest wall pain to the right side of the chest and over the right clavicle upon wake 3 days ago. Patient reported increased pain to right side of chest with deep breathing and intermittent cough. Denies any trauma or injury. Denies shortness of breath, palpitation, numbness or tingling sensation, nausea, vomiting, dizziness, fever or chills. Denies any sick contact or recent travel. Patient has not taken anything for the pain. Reported increased pain when she pressed on the right side of her chest wall. Denies any other symptoms Exam significant for mild reproducible tenderness to left chest wall over second and third ribs and right clavicle. Normal cardio and lung exam. Patient in no acute distress. Patient walking with normal gait. Normal neuro exam. Patient symptoms likely costochondritis. Chest x-ray ordered to rule acute abnormality. Treat based on imaging results 04/02/20 16:03 Chest x-ray shows no acute abnormality. Patient symptoms likely costochondritis and stable for discharge on naproxen as needed for pain with strict follow-up instructions with cardiology follow-up as needed Discharge - Discharge Information Problems reviewed: Yes Clinical Impression/Diagnosis: Costochondral chest pain Condition: Stable Disposition: HOME - Admission No - Additional Discharge Information Prescriptions: Naproxen 500 mg PO BID PRN #20 tablet PRN Reason: pain - Follow up/Referral Referrals: Chip Tierney MD [Staff Physician] - Fox Marshall MD [Staff Physician] - - Patient Discharge Instructions Patient Printed Discharge Instructions: DI for Costochondritis Additional Instructions: Your chest x-ray is normal and shows no acute abnormality. Your pain is likely from muscle pain from straining of the chest wall. Take prescribed medication as prescribed for pain. You can apply heat as needed to chest wall. Follow-up referred line inspector if symptoms persist for more than 3 days - Post Discharge Activity
[2020-04-02] MEDS ORDERED: NAPROXEN 500 MG TABLET PO ONE (15:54)
[2020-04-02] MEDS ORDERED: NAPROXEN 500 MG TABLET ONE (15:59)
== END 2020-04-02 16:04 | disposition home or self-care (01) ==
LOC: JERFT 15:04 → JER 15:04 → JERFT 16:04
DX: R07.1 Chest pain on breathing (principal)
CPT/HCPCS: 71046-TC-FY; 99283-25

== ENCOUNTER 2020-12-26 18:05 | Emergency (ER) | payer OTHER ==
[2020-12-26 18:15] VITALS: BP 112/70; PULSE 78; TEMP 98.3; BMI 24.7
[2020-12-26 20:27] LABS: BASO % 0.5 % (0-2.0); EOS % 1.4 % (0-4.5); HEMATOCRIT 35.5 % (32.4-45.2); HEMOGLOBIN 11.1 GM/dL (10.7-15.3); LYMPH % 33.5 % (8-40); MCH 23.3 pg (25.7-33.7); MCHC 31.3 g/dl (32.0-36.0); MEAN CELL VOLUME 74.4 fl (80-96); MONO % 5.5 % (3.8-10.2); NEUT % 59.1 % (42.8-82.8); PLATELET COUNT 319 10^3/uL (134-434); RBC 4.77 M/mm3 (3.60-5.2); WHITE BLOOD COUNT 6.9 K/mm3 (4.0-10.0)
[2020-12-26 20:47] LABS: BLOOD UREA NITROGEN 10.8 mg/dL (7-18)
[2020-12-26 20:51] LABS: CREATININE 0.9 mg/dL (0.55-1.3)
== END 2020-12-26 22:21 | disposition home or self-care (01) ==
LOC: JER 18:05
DX: R07.9 Chest pain, unspecified (principal)
CPT/HCPCS: 36415; 71046-TC-FY; 80048; 85025; 85379; 93005; 93010; 99285-25

== ENCOUNTER 2022-03-29 21:32 | Emergency (ER) | payer OTHER ==
[2022-03-29 21:39] VITALS: BP 124/86; PULSE 104; RESP 20; TEMP 98; BMI 19.7
[2022-03-29] MEDS ORDERED: ACETAMINOPHEN 500 MG TABLET (FP) PO ONE (22:45)
[2022-03-29] MEDS ORDERED: ACETAMINOPHEN 500 MG TABLET (FP) ONE (22:48)
== END 2022-03-29 23:26 | disposition home or self-care (01) ==
LOC: JERFT 21:32
DX: M54.2 Cervicalgia (principal); M79.602 Pain in left arm
CPT/HCPCS: 84703; 99283-25

== ENCOUNTER 2022-06-09 11:43 | Emergency (ER) | payer OTHER ==
[2022-06-09] MEDS ORDERED: ACETAMINOPHEN 500 MG TABLET (FP) PO ONE (12:35)
[2022-06-09] MEDS ORDERED: IBUPROFEN 600 MG TABLET (FP) PO ONE (12:35)
[2022-06-09] MEDS ORDERED: ONDANSETRON *ODT* 4 MG TABLET SL ONE (12:35)
[2022-06-09 12:59] VITALS: BP 135/62; PULSE 135; RESP 18; TEMP 100.2; BMI 23.0
[2022-06-09] MEDS ORDERED: IBUPROFEN 400 MG TABLET (FP) PO ONE ×2 (13:36→13:47)
[2022-06-09] MEDS ORDERED: ACETAMINOPHEN 500 MG TABLET (FP) ONE ×2 (13:36→13:48)
[2022-06-09] MEDS ORDERED: ONDANSETRON 4 MG TABLET PO ONE ×2 (13:36→13:47)
== END 2022-06-09 13:45 | disposition home or self-care (01) ==
LOC: JER 11:43
DX: J09.X2 Influenza due to identified novel influenza A virus with other respiratory manifestations (principal); R05.1 Acute cough; R50.9 Fever, unspecified; J02.9 Acute pharyngitis, unspecified
CPT/HCPCS: 0241U-QW; 99283-25; Q0162

== ENCOUNTER 2024-07-23 15:41 | Emergency (ER) | payer OTHER ==
[2024-07-23 15:53] VITALS: BP 101/64; PULSE 81; RESP 18; TEMP 98.3; BMI 18.0
[2024-07-23] MEDS ORDERED: DIPHTH,PERTUSS(ACELL),TET 0.5 ML DISP.SYRIN IM ONE (17:19)
[2024-07-23] MEDS: DIPHTH,PERTUSS(ACELL),TET 0.5 ML DISP.SYRIN IM ONE (17:27)
== END 2024-07-23 17:37 | disposition home or self-care (01) ==
LOC: JERFT 15:41
PROC: 0HQKXZZ Repair Right Lower Leg Skin, External Approach (ICD-10-PCS; principal; 2024-07-23)
PROC: 3E0234Z Introduction of Serum, Toxoid and Vaccine into Muscle, Percutaneous Approach (ICD-10-PCS; 2024-07-23)
DX: S81.011A Laceration without foreign body, right knee, initial encounter (principal); S50.312A Abrasion of left elbow, initial encounter; Z23 Encounter for immunization; Y04.2XXA Assault by strike against or bumped into by another person, initial encounter
CPT/HCPCS: 12002-25; 90471; 90715; 99284-25